=== PATIENT | male | born 1985 | race Two or more races ===

== ENCOUNTER 2023-06-05 13:11 | Emergency (ER) | payer OTHER ==
[~2023-06-05] VITALS: Ht 172.7 cm; Wt 77.0 kg
[2023-06-05 15:15] VITALS: PULSE 75; RESP 23; O2SAT 98
[2023-06-05 15:16] VITALS: TEMP 99.6
[2023-06-05] MEDS ORDERED: MORPHINE SULFATE 4 MG/ML SYR/VIAL IV ONE (15:45)
[2023-06-05] MEDS ORDERED: LIDOCAINE 1% HCL (LOCAL ANESTH.) INJ 20ML MDV IJ ONE (15:45)
[2023-06-05] MEDS ORDERED: ONDANSETRON HCL 4 MG/2 ML VIAL IV ONE (15:45)
[2023-06-05 17:00] VITALS: O2SAT 95
[2023-06-05 17:12] VITALS: BP 113/71; PULSE 64; RESP 16
[2023-06-05] MEDS ORDERED: IBUP-1455 PO (18:22)
[2023-06-05] MEDS ORDERED: HYDR-4902 PO (18:22)
== END 2023-06-05 18:45 | disposition home or self-care (01) ==
LOC: ER 13:11
DX: S52.501A Unspecified fracture of the lower end of right radius, initial encounter for closed fracture (principal); S80.11XA Contusion of right lower leg, initial encounter; W13.2XXA Fall from, out of or through roof, initial encounter; Y93.89 Activity, other specified; Y92.89 Other specified places as the place of occurrence of the external cause; Y99.8 Other external cause status
CPT/HCPCS: 25605; 73100; 73110; 73502; 73590; 96374; 96375; 99284; J2001; J2270; J2405